=== PATIENT | male | born 1990 | race Caucasian/White ===

== ENCOUNTER 2017-09-04 15:18 | Emergency (ER) | payer OTHER ==
[~2017-09-04] VITALS: Ht 193 cm; Wt 175.4 kg
[2017-09-04] MEDS ORDERED: NAPROXEN500 MG PO (16:58)
[2017-09-04 17:07] VITALS: BP 146/81
== END 2017-09-04 17:08 | disposition home or self-care (01) ==
LOC: EME 15:18
DX: M25.572 Pain in left ankle and joints of left foot (principal); M25.472 Effusion, left ankle; M79.605 Pain in left leg; M79.89 Other specified soft tissue disorders; M77.32 Calcaneal spur, left foot
CPT/HCPCS: 73610; 93971; 99281; 99284